=== PATIENT | female | born 1985 | race Caucasian/White ===

== ENCOUNTER 2017-04-10 11:32 | Emergency (ER) | payer MEDICAID ==
[~2017-04-10] VITALS: Ht 149.9 cm; Wt 41.7 kg
[2017-04-10 11:56] VITALS: BP 115/86
== END 2017-04-10 12:47 | disposition home or self-care (01) ==
LOC: ER 11:36
DX: S70.361A Insect bite (nonvenomous), right thigh, initial encounter (principal); W57.XXXA Bitten or stung by nonvenomous insect and other nonvenomous arthropods, initial encounter; Y93.89 Activity, other specified; Y92.89 Other specified places as the place of occurrence of the external cause; Y99.8 Other external cause status

== ENCOUNTER 2017-04-23 22:09 | Emergency (ER) | payer MEDICAID ==
[~2017-04-23] VITALS: Ht 172.7 cm; Wt 72.6 kg
[2017-04-24] VITALS: BP 122/76
[2017-04-24] MEDS ORDERED: NEOMYCIN-BACITRACIN-POLYM 15GM TOP OINT TOP ONE (00:21)
[2017-04-24] MEDS ORDERED: ONDANSETRON HCL 4 MG/2 ML VIAL ONE (07:21)
== END 2017-04-24 07:06 ==
LOC: EDBD 22:09 → ER 22:14
DX: S00.93XA Contusion of unspecified part of head, initial encounter (principal); S00.212A Abrasion of left eyelid and periocular area, initial encounter; V49.3XXA Car occupant (driver) (passenger) injured in unspecified nontraffic accident, initial encounter; Y93.89 Activity, other specified; Y92.89 Other specified places as the place of occurrence of the external cause; Y99.8 Other external cause status
CPT/HCPCS: 70450; 99284; J2405

== ENCOUNTER 2017-12-15 14:36 | Emergency (ER) | payer MEDICAID ==
[~2017-12-15] VITALS: Ht 149.9 cm; Wt 45.4 kg
[2017-12-15 16:48] VITALS: BP 124/82
[2017-12-15] MEDS ORDERED: KETOROLAC TROMETH 60MG/2ML VIAL IM ONE (17:15)
[2017-12-15] MEDS ORDERED: PROMETHAZINE HCL 25 MG/ML 1ML IM ONE (17:15)
[2017-12-15] MEDS ORDERED: diphenhdrAMINE HCL 25 MG CAP PO ONE (17:15)
== END 2017-12-15 18:40 | disposition home or self-care (01) ==
LOC: ER 14:36
DX: J03.90 Acute tonsillitis, unspecified (principal); R51 Headache
CPT/HCPCS: 70450; 96372; 99284; J1885; J2550